=== PATIENT | male | born 1950 | race Caucasian/White ===

== ENCOUNTER 2019-12-25 11:34 | Observation (INO) ==
[2019-12-25] MEDS ORDERED: SODIUM CHLORIDE 0.9% 500 ML IV ONE (12:03)
[2019-12-25] MEDS ORDERED: LIDOCAINE/EPINEPH/TETRACAINE 1 EA SYR EXT STA (12:06)
[2019-12-25] MEDS ORDERED: DIPHTHERIA/TETANUS/PERTUSSIS 0.5 ML SYR/VIAL IM ONE (12:06)
[2019-12-25 12:19] LABS: Basophils # (auto) 0.05 K/uL (0-0.2); Basophils % (auto) 0.5 %; Eosinophils # (auto) 0.75 K/uL (0-0.5); Eosinophils % (auto) 8.1 %; Hematocrit (blood only) 34.8 % (42-52); Hemoglobin 11.5 g/dL (14.0-18.0); Immature Granulocytes # (auto) 0.02 K/uL (0.00-0.02); Immature Granulocytes % (auto) 0.2 %; Lymphocytes # (auto) 1.03 K/uL (1.2-3.4); Lymphocytes % (auto) 11.1 %; Mean Corpuscular Hemoglobin 28.5 pg (25-34); Mean Corpuscular Volume 86.1 fL (80-100); Mean Platelet Volume 10.1 fL (7.4-10.4); Monocytes # (auto) 0.67 K/uL (0.11-0.59); Monocytes % (auto) 7.3 %; Neutrophils # (auto) 6.72 K/uL (1.4-6.5); Neutrophils % (auto) 72.8 %; Platelet Count 240 K/uL (130-400); RDW Coefficient of Variation 13.5 % (11.5-14.5); RDW Standard Deviation 42.4 fL (36.4-46.3); Red Blood Count 4.04 M/uL (4.7-6.1); White Blood Count 9.24 K/uL (4.8-10.8)
--- NOTE | 2019-12-25 12:24 | XRay Report ---
LEFT KNEE 2 VIEWS HISTORY: Left knee pain. fall COMPARISON: None. FINDINGS: There is no fracture or dislocation. Soft tissues are unremarkable. No radiopaque foreign b odies. No knee effusion. IMPRESSION: No fractures. ACT 112: Negative or not required by law. Electronically signed by: Jere Hubbard M.D. 12/25/2019 12:23 PM
--- NOTE | 2019-12-25 12:31 | XRay Report ---
XR chest 1V portable HISTORY: SEPSIS COMPARISON: Chest 04/30/2018. FINDINGS: The heart is normal in size. The lungs are clear. No pleural effusions. No pneumothorax. Mu ltiple surgical clips within the upper abdomen are again noted. IMPRESSION: No acute process. ACT 112: Negative or not required by law. Electronically signed by: Jere Hubbard M.D. 12/25/2019 12:30 PM
[2019-12-25 12:32] LABS: INR 1.1 (0.9-1.1); Partial Thromboplastin Time 27.8 Seconds (21.0-31.0); Prothrombin Time 11.4 Seconds (9.0-12.0)
--- NOTE | 2019-12-25 12:34 | Emergency Department Note ---
Impression & Plan Orthostatic hypotension, Acute kidney injury, Acute dehydration, Contusion of face, Face lacerations, Contusion of knee, left ED Provider Note NAME: NERIS WASSERMAN III AGE: 69 SEX: M : 1950 ARRIVES VIA: Walk-In INFORMANT: Patient, ED PROVIDER(S): Leno Alford DO CHIEF COMPLAINT: Generalized weakness and fall HPI: The patient is a 69-year-old male who presented to the emergency department after having a fall. The patient states that when he went to stand up from a lying position he felt very dizzy and lightheaded. He fell striking his head and his face. There was no loss of consciousness. The patient attempted to get up again and had very significant dizziness. The patient states that he has continued symptoms at this time. At rest he does not have any specific dizziness or vertigo. He denies having any headache at this time but does complain of facial pain where he struck his face. He also complains of left knee pain. He denies having any nausea or vomiting. He is had no recent fevers. The patient normally takes medications for high blood pressure. He states that he has been taking his medications as prescribed. He has had no recent traveling or fever. He denies having any abdominal pain dysuria or frequency. The patient is noticed no weight gain or weight loss. He denies having any increasing swelling in his legs. ROS: See above HPI for pertinent positives & negatives. A total of 10 systems reviewed and were otherwise negative. PAST MEDICAL HISTORY: See Below PAST SURGICAL HISTORY: See Below FAMILY HISTORY: See Below SOCIAL HISTORY: See Below HOME MEDICATIONS: See Below ALLERGIES: See Below VITALS: See Below PHYSICAL EXAMINATION: GENERAL: The patient is awake and alert. He is somewhat anxious appearing but overall comfortable. EYES: The conjunctivae are clear. The pupils are round and reactive. EARS, NOSE, MOUTH AND THROAT: The nose is without any evidence of any deformity. Mucous membranes are moist. There is swelling and abrasion noted to the forehead as well as the occipital scalp. There is also a laceration over the left cheek. No active bleeding was noted. NECK: The neck is nontender and supple. RESPIRATORY: Normal respiratory effort is noted there is no evidence of wheezing rhonchi or rales CARDIOVASCULAR: Regular rate and rhythm noted there no murmurs rubs or gallops normal S1 normal S2. GASTROINTESTINAL: The abdomen is soft. Abdomen is nontender. BACK: No midline tenderness or or step-off noted range of motion in flexion extension as well as rotation no signs of muscle spasm noted MUSCULOSKELETAL/EXTREMITIES: There is no deformity noted. There is an abrasion to the left knee. Range of motion is intact in both lower extremities. SKIN: There is no obvious evidence of any rash. Trace pedal edema was noted. NEUROLOGIC: Patient is awake alert and oriented x3 strength is symmetric patellar reflexes are 2+ bilaterally MEDICAL DECISION MAKING: The patient is a 69-year-old male who presented to the emergency department after having a dizzy spell and he fell. The patient has a history of 1 kidney. He has had underlying chronic renal insufficiency. The patient has underlying bradycardia because of beta-savi use for hypertension. The patient also suffered a laceration to the left side of his face after the fall. The patient was treated with IV fluids. I discussed the patient's laboratory and radiographic studies with him. The laceration was repaired by Perlita Hooper PA-C. Please see her note for procedure details. Because of the patient's past medic al history and renal status I did discuss this case with the on-call [facility] hospitalist group. They have agreed to evaluate the patient in the emergency department for further management and disposition. The patient did have a positive orthostatic vital sign and dropped his blood pressure s ignificantly. I do not feel that he is septic at this time. Triage Nursing notes reviewed. Prior medical records reviewed Vital Signs: reviewed and remarkable for no significant abnormalities Differential diagnosis: Infection, dehydration, metabolic abnormality, hypo/hyperglycemia, electrolyte disturbance, anemia, hypoxia, cardiac sources, intracerebral event, toxicologic, neurologic, as well as other pathologies. ER treatment provided: See below Diagnostics interpreted by me: ECG: EKG was obtained in the emergency department. My interpretation is sinus bradycardia at 42 bpm. There was a nonspecific intraventricular block noted with a QRS duration of 140. There were no PVCs. This was compared to a tracing from April 30, 2018. The QRS appears to be prolonged compared to the earlier tracing however no specific changes were noted. Cardiac Monitoring: An order was placed for continuous cardiac monitoring. The monitor shows a rate of 55 with sinus bradycardia rhythm. Laboratory studies: As stated above and show below. Imaging studies: See below Consultation(s): 1410: I discussed this case with Dr. Lindquist who is on-call for the [facility] hospitalist group. He is agreed to evaluate the patient in the emergency department for further management and disposition. 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 PT DOSE NOT ABSORB NUTRIENTS/FLUIDS. DIGESTIVE PROCESS IS EXCELERATED PER PT History of nephrectomy, unilateral HTN (hypertension) (Chronic) HTN (hypertension) (Chronic) Hypoglycemia Klebsiella sepsis (Acute) Lupus Lupus (Chronic) Staton syndrome Pseudomonas sepsis (Acute) Short gut syndrome (Chronic) Surgical History (Updated 12/25/19 @ 14:43 by Jonny Lindquist) H/O colectomy 2nd to numerous polyps (Staton syndrome) History of cholecystectomy Family History (Updated 12/25/19 @ 14:41 by Jonny Lindquist) Father Colorectal cancer Leukemia "blood cancer" per patient Brother Renal cell cancer Kidney disease ESRD on HD Social History (Updated 12/25/19 @ 14:44 by Jonny Lindquist) Preferred Language: Maltese Communication Ability: Effective Neck Band Maker Required: No Beliefs That Will Affect Care: None marital status: Current Living Situation: Other Current Living Situation Comment: lives with ex- in [place], [place] (splits time between [place] & [place]) 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 other: 3 children; 1 daughter lives in [place] Feels Safe at Home: Yes Smoking Status: Never smoker Second Hand Exposure: Yes ; Hx Alcohol Use: Yes (very infrequently) Alcohol Intake Frequency: Rarely Hx Substance Use: No Allergies Allergies Allergy/AdvReac Type Severity Reaction Status Date / Time lactose AdvReac Gastrointestinal Verified 12/25/19 11:59 Upset Home Meds Home Medications Medication Instructions Recorded Confirmed amlodipine [Norvasc] 10 mg PO QAM 04/23/18 12/25/19 doxazosin [Cardura] 4 mg PO QAM 04/23/18 12/25/19 duloxetine [Cymbalta] 60 mg PO QAM 04/23/18 12/25/19 ferrous sulfate 325 mg PO BID 04/23/18 12/25/19 hydroxychloroquine [Plaquenil] 200 mg PO BID 04/23/18 12/25/19 labetalol 400 mg PO BID 04/23/18 12/25/19 promethazine 12.5 mg PO DIRECTED PRN 04/23/18 12/25/19 zolpidem [Ambien] 10 mg PO HS PRN 04/23/18 12/25/19 gabapentin 300 mg capsule 600 mg PO DAILY cap 12/11/19 12/25/19 cholecalciferol (vitamin D3) 50 mcg PO DAILY 12/25/19 12/25/19 [Vitamin D3] Previous Rx's Medication Instructions Recorded albuterol sulfate 2 inha INH Q4H PRN #8 gm 04/30/18 lisinopril 2.5 mg tablet 2.5 mg PO DAILY #90 tab 05/24/19 Results & Data (ED) Vital Signs Vital Signs - 24 hr 12/25/19 11:40 12/25/19 11:54 12/25/19 11:58 Pulse Rate - Lying 41 L Pulse Rate - Sitting 44 L Pulse Rate - Standing 48 L Pulse Rate 45 L 44 L Respiratory Rate 16 19 Respiratory Effort / Characteristics Non-Labored Spontaneous Respiratory Depth Normal Blood Pressure - Lying 127/68 Blood Pressure - Sitting 122/66 Blood Pressure- Standing 73/48 L Blood Pressure 86/52 L 73/48 L Blood Pressure Mean 63 59 Pulse Oximetry 95 Oxygen Delivery Method Room Air Sepsis Recent Fever Within 48 Hours No Sepsis Action Taken by Nursing No Action Required 12/25/19 12:00 12/25/19 12:03 12/25/19 12:15 Pulse Rate - Lying Pulse Rate - Sitting Pulse Rate - Standing Pulse Rate 44 L 44 L Respiratory Rate 14 13 Respiratory Effort / Characteristics Respiratory Depth Blood Pressure - Lying Blood Pressure - Sitting Blood Pressure- Standing Blood Pressure Blood Pressure Mean Pulse Oximetry 95 Oxygen Delivery Method Room Air Sepsis Recent Fever Within 48 Hours Sepsis Action Taken by Nursing 12/25/19 12:30 12/25/19 12:35 12/25/19 12:45 Pulse Rate - Lying Pulse Rate - Sitting Pulse Rate - Standing Pulse Rate 46 L 44 L 49 L Respiratory Rate 13 14 Respiratory Effort / Characteristics Respiratory Depth Blood Pressure - Lying Blood Pressure - Sitting Blood Pressure- Standing Blood Pressure 149/71 H Blood Pressure Mean 86 Pulse Oximetry Oxygen Delivery Method Sepsis Recent Fever Within 48 Hours Sepsis Action Taken by Nursing 12/25/19 13:32 Pulse Rate - Lying Pulse Rate - Sitting Pulse Rate - Standing Pulse Rate 52 L Respiratory Rate 14 Respiratory Effort / Characteristics Respiratory Depth Blood Pressure - Lying Blood Pressure - Sitting Blood Pressure- Standing Blood Pressure 135/76 Blood Pressure Mean 89 Pulse Oximetry Oxygen Delivery Method Sepsis Recent Fever Within 48 Hours Sepsis Action Taken by [facility] Medications Current Medication List: was personally reviewed by me Laboratory Data Attestation: I reviewed the patient's lab results. Result diagrams: 12/25/19 12:10 12/25/19 12:10 Lab Results 12/25/19 12/25/19 12/25/19 Range/Units 12:10 12:10 12:10 WBC 9.24 (4.8-10.8) K/uL RBC 4.04 L (4.7-6.1) M/uL Hgb 11.5 L (14.0-18.0) g/dL Hct 34.8 L (42-52) % MCV 86.1 (80-100) fL MCH 28.5 (25-34) pg MCHC 33.0 (32-36) g/dL RDW Std Deviation 42.4 (36.4-46.3) fL RDW Coeff of Bruno 13.5 (11.5-14.5) % Plt Count 240 (130-400) K/uL MPV 10.1 (7.4-10.4) fL Immature Gran % (Auto) 0.2 % Neut % (Auto) 72.8 % Lymph % (Auto) 11.1 % [place] % (Auto) 7.3 % Eos % (Auto) 8.1 % Baso % (Auto) 0.5 % Immature Gran # (Auto) 0.02 (0.00-0.02) K/uL Neut # (Auto) 6.72 H (1.4-6.5) K/uL Lymph # (Auto) 1.03 L (1.2-3.4) K/uL [place] # (Auto) 0.67 H (0.11-0.59) K/uL Eos # (Auto) 0.75 H (0-0.5) K/uL Baso # (Auto) 0.05 (0-0.2) K/uL PT 11.4 (9.0-12.0) Seconds INR 1.1 (0.9-1.1) APTT 27.8 (21.0-31.0) Seconds PTT Ratio 1.0 Sodium 139 (136-145) mmol/L Potassium 4.0 (3.5-5.1) mmol/L Chloride 111 H (98-107) mmol/L Carbon Dioxide 20 L (21-32) mmol/L Anion Gap 8.0 (3-11) BUN 23 H (7-18) mg/dl Creatinine 2.92 H (0.6-1.4) mg/dl Est Cr Clr Drug Dosing 26.6 ml/min Est GFR ( Amer) 24.1 Est GFR (Non-Af Amer) 20.8 BUN/Creatinine Ratio 7.9 L (10-20) Glucose 128 H (70-99) mg/dl Lactate (0.4-2.0) mmol/L Calcium 9.3 (8.5-10.1) mg/dl Magnesium 2.2 (1.8-2.4) mg/dl Total Bilirubin 0.8 (0.2-1) mg/dl AST 25 (15-37) U/L ALT 20 (12-78) U/L Alkaline Phosphatase 89 (45-117) U/L Troponin I < 0.015 (0-0.045) ng/ml Total Protein 6.7 (6.4-8.2) gm/dl Albumin 3.2 L (3.4-5.0) gm/dl Globulin 3.5 (2.5-4.0) gm/dl Albumin/Globulin Ratio 0.9 (0.9-2) Procalcitonin (0-0.5) ng/ml TSH 0.449 (0.300-4.500) uIu/ml 12/25/19 12/25/19 Range/Units 12:10 12:50 WBC (4.8-10.8) K/uL RBC (4.7-6.1) M/uL Hgb (14.0-18.0) g/dL Hct (42-52) % MCV (80-100) fL MCH (25-34) pg MCHC (32-36) g/dL RDW Std Deviation (36.4-46.3) fL RDW Coeff of Bruno (11.5-14.5) % Plt Count (130-400) K/uL MPV (7.4-10.4) fL Immature Gran % (Auto) % Neut % (Auto) % Lymph % (Auto) % [place] % (Auto) % Eos % (Auto) % Baso % (Auto) % Immature Gran # (Auto) (0.00-0.02) K/uL Neut # (Auto) (1.4-6.5) K/uL Lymph # (Auto) (1.2-3.4) K/uL [place] # (Auto) (0.11-0.59) K/uL Eos # (Auto) (0-0.5) K/uL Baso # (Auto) (0-0.2) K/uL PT (9.0-12.0) Seconds INR (0.9-1.1) APTT (21.0-31.0) Seconds PTT Ratio Sodium (136-145) mmol/L Potassium (3.5-5.1) mmol/L Chloride (98-107) mmol/L Carbon Dioxide (21-32) mmol/L Anion Gap (3-11) BUN (7-18) mg/dl Creatinine (0.6-1.4) mg/dl Est Cr Clr Drug Dosing ml/min Est GFR ( Amer) Est GFR (Non-Af Amer) BUN/Creatinine Ratio (10-20) Glucose (70-99) mg/dl Lactate 1.1 (0.4-2.0) mmol/L Calcium (8.5-10.1) mg/dl Magnesium (1.8-2.4) mg/dl Total Bilirubin (0.2-1) mg/dl AST (15-37) U/L ALT (12-78) U/L Alkaline Phosphatase (45-117) U/L Troponin I (0-0.045) ng/ml Total Protein (6.4-8.2) gm/dl Albumin (3.4-5.0) gm/dl Globulin (2.5-4.0) gm/dl Albumin/Globulin Ratio (0.9-2) Procalcitonin 0.11 (0-0.5) ng/ml TSH (0.300-4.500) uIu/ml Administered Medications Discontinued Medications Diphtheria/Pertussis/Tetanus Vacc (Adacel) 0.5 ml IM .ONCE ONE Stop: 12/25/19 12:07 Last Admin: 12/25/19 12:30 Dose: 0.5 ml Documented by: [id number] Sodium Chloride (Nss) 500 mls @ 999 mls/hr IV .Q31M ONE Stop: 12/25/19 12:33 Last Infusion: 12/25/19 13:08 Dose: 0 mls/hr Documented by: [id number] Admin: 12/25/19 12:31 Dose: 999 mls/hr Documented by: [id number] Sodium Chloride (Nss 1000ml) 500 mls @ 999 mls/hr IV .Q31M ONE Stop: 12/25/19 13:57 Last Infusion: 12/25/19 14:05 Dose: 0 mls/hr Documented by: [id number] Admin: 12/25/19 13:36 Dose: 999 mls/hr Documented by: [id number] Lidocaine (Let Gel 4%/1:100/0.5%) 1 ea EXT NOW STA Stop: 12/25/19 12:07 Last Admin: 12/25/19 12:30 Dose: 1 ea Documented by: [id number] Imaging Data Radiologist's Impression: XR chest 1V portable HISTORY: SEPSIS COMPARISON: Chest 04/30/2018. FINDINGS: The heart is normal in size. The lungs are clear. No pleural effusions. No pneumothorax. Multiple surgical clips within the upper abdomen are again noted. IMPRESSION: No acute process. ACT 112: Negative or not required by law. Electronically signed by: Jere Hubbard M.D. 12/25/2019 12:30 PM Dictated: 12/25/19 1223 Transcribed: 12/25/[address] DOSE: 1053.89 mGy.cm HISTORY: fall TECHNIQUE: Multiaxial CT images of the cervical spine were performed and reformatted in the sagittal and coronal plane without the use of contrast. A dose lowering technique was utilized adhering to the principles of ALARA. COMPARISON: None. FINDINGS: No fractures. No subluxation. Prevertebral soft tissues and the C1-C2 interval are intact. No pneumothorax. Mild to moderate degenerative disc disease at C4-C5 and C5-C6. IMPRESSION: No fractures within the cervical spine. ACT 112: Negative or not required by law. Electronically signed by: Jere Hubbard M.D. 12/25/2019 1:27 PM Dictated: 12/25/19 1326 Transcribed: 12/25/[address] head/brain wo con CLINICAL HISTORY: 69 years-old Male presenting with fall. TECHNIQUE: Multidetector CT imaging of the head was performed without the use of intravenous contrast. IV contrast: None. One or more dose lowering techniques were used consistent with the principles of ALARA (as low as reasonably achievable), including automatic exposure control, mA or kV adjustment to individual patient size, and/or use of iterative reconstruction. COMPARISON: None. CT DOSE (mGy.cm): The estimated cumulative dose is 1053.89. FINDINGS: Vice President Education topogram: Unremarkable. Ventricles and sulci normal in size. No hemorrhage. Brain parenchyma normal in appearance with preserved mckeon-white differentiation. No acute territorial infarct. No mass effect or midline shift. No extra-axial fluid collection. Paranasal sinuses and mastoid air cells clear. Scattered mucosal thickening in ethmoid air cells and the frontal sinuses, left greater than right. Skull base intact. Calvarium intact. Mild soft tissue swelling in the left premaxillary region with a possible laceration. IMPRESSION: 1. No acute intracranial abnormality. 2. Possible left premaxillary contusion and laceration. ACT 112: Negative or not required by law. Electronically signed by: Otto Chairez M.D. 12/25/2019 1:22 PM Dictated: 12/25/19 1320 Transcribed: 12/25/19 1320 LEFT KNEE 2 VIEWS HISTORY: Left knee pain. fall COMPARISON: None. FINDINGS: There is no fracture or dislocation. Soft tissues are unremarkable. No radiopaque foreign bodies. No knee effusion. IMPRESSION: No fractures. ACT 112: Negative or not required by law. Electronically signed by: Jere Hubbard M.D. 12/25/2019 12:23 PM Dictated: 12/25/19 1222 Transcribed: 12/25/19 1222 Blood Pressure Blood Pressure Findings: Low blood pressure Head Trauma GCS Score: 15 Discharge Plan Visit Data Chief Complaint: Fall Stated Complaint: FELL DOWNSTAIRS, HIT LT SIDE HEAD ED Provider: Leno Alford Discharge Problem: Orthostatic hypotension, Acute kidney injury, Acute dehydration, Contusion of face, Face lacerations, Contusion of knee, left Patient Disposition: Being Evaluated by Hospitalist Condition: Good Forms Stand Alone Forms: [facility], Important Visit Information Prescriptions Prescriptions: No Action gabapentin 300 mg capsule 600 mg PO DAILY RF: 0 lisinopril 2.5 mg tablet 2.5 mg PO DAILY Qty: 90 RF: 3 labetalol 200 mg Tablet 400 mg PO BID RF: 0 promethazine 12.5 mg Tablet 12.5 mg PO DIRECTED PRN (Reason: nausea) RF: 0 amlodipine [Norvasc] 10 mg Tablet 10 mg PO QAM RF: 0 ferrous sulfate 325 mg (65 mg iron) Tablet 325 mg PO BID RF: 0 doxazosin [Cardura] 4 mg Tablet 4 mg PO QAM RF: 0 hydroxychloroquine [Plaquenil] 200 mg Tablet 200 mg PO BID RF: 0 zolpidem [Ambien] 10 mg Tablet 10 mg PO HS PRN (Reason: Sleep) RF: 0 duloxetine [Cymbalta] 60 mg Capsule,Delayed Release(Dr/Ec) 60 mg PO QAM RF: 0 cholecalciferol (vitamin D3) [Vitamin D3] 50 mcg (2,000 unit) Tablet 50 mcg PO DAILY RF: 0 albuterol sulfate 90 mcg/actuation HFA aerosol inhaler 2 inha INH Q4H PRN (Reason: shortness of breath or wheezing) Qty: 8 RF: 0 Referrals Referrals: PCP,NO [Primary Care Provider] -
[2019-12-25 12:38] LABS: Albumin Level 3.2 gm/dl (3.4-5.0); Aspartate Aminotransferase 25 U/L (15-37); BUN Creatinine Ratio 7.9 (10-20); Blood Urea Nitrogen 23 mg/dl (7-18); Calcium 9.3 mg/dl (8.5-10.1); Carbon Dioxide 20 mmol/L (21-32); Chloride 111 mmol/L (98-107); Creatinine Clr Calc Pharmacy 26.6 ml/min; Est GFR (African American) 24.1; Est GFR (Non-African American) 20.8; Glucose 128 mg/dl (70-99); Magnesium 2.2 mg/dl (1.8-2.4); Sodium 139 mmol/L (136-145)
[2019-12-25 12:48] LABS: Alanine Aminotransferase 20 U/L (12-78); Albumin Globulin Ratio 0.9 (0.9-2); Alkaline Phosphatase 89 U/L (45-117); Bilirubin,Total 0.8 mg/dl (0.2-1); Globulin 3.5 gm/dl (2.5-4.0); Thyroid Stimulating Hormone 0.449 uIu/ml (0.300-4.500); Total Protein 6.7 gm/dl (6.4-8.2); Troponin I < 0.015 ng/ml (0-0.045)
--- NOTE | 2019-12-25 13:23 | CT Scan Report ---
CT head/brain wo con CLINICAL HISTORY: 69 years-old Male presenting with fall. TECHNIQUE: Multidetector CT imaging of the head was performed without the use of intravenous contrast . IV contrast: None. One or more dose lowering techniques were used consistent with the principles of ALARA (as low as reasonably achievable), including automatic exposure control, mA or kV adjustment t o individual patient size, and/or use of iterative reconstruction. COMPARISON: None. CT DOSE (mGy.cm): The estimated cumulative dose is 1053.89. FINDINGS: Safety Officer topogram: Unremarkable. Ventricles and sulci normal in size. No hemorrhage. Brain parenchyma normal in appearance with preser kathryn mckeon-white differentiation. No acute territorial infarct. No mass effect or midline shift. No ext ra-axial fluid collection. Paranasal sinuses and mastoid air cells clear. Scattered mucosal thickenin g in ethmoid air cells and the frontal sinuses, left greater than right. Skull base intact. Calvarium intact. Mild soft tissue swelling in the left premaxillary region with a possible laceration. IMPRESSION: 1. No acute intracranial abnormality. 2. Possible left premaxillary contusion and laceration. ACT 112: Negative or not required by law. Electronically signed by: Otto Chairez M.D. 12/25/2019 1:22 PM
[2019-12-25] MEDS ORDERED: SODIUM CHLORIDE 0.9% 1000ML 500 ML IV ONE (13:27)
--- NOTE | 2019-12-25 13:28 | CT Scan Report ---
CERVICAL SPINE CT CT DOSE: 1053.89 mGy.cm HISTORY: fall TECHNIQUE: Multiaxial CT images of the cervical spine were performed and reformatted in the sagittal and coronal plane without the use of contrast. A dose lowering technique was utilized adhering to th e principles of ALARA. COMPARISON: None. FINDINGS: No fractures. No subluxation. Prevertebral soft tissues and the C1-C2 interval are intact. No pneumothorax. Mild to moderate degenerative disc disease at C4-C5 and C5-C6. IMPRESSION: No fractures within the cervical spine. ACT 112: Negative or not required by law. Electronically signed by: Jere Hubbard M.D. 12/25/2019 1:27 PM
--- NOTE | 2019-12-25 13:56 | Emergency Department Note ---
ED Visit Note I was asked by Dr. Alford to repair the laceration on the patient's left cheek. He sustained a 2 cm laceration on the left cheek, just inferior to the orbit. The edges did gape apart with traction. There is mild active bleeding at this time. No deep structures noted at the base of the wound. Surrounding ecchymosis noted. Please see Dr. Alford's dictation regarding complete history, management, care, and final disposition of this patient. PROCEDURE NOTE: Verbal consent was obtained to perform the procedure. LET gel had been applied to the wound and allowed to sit for approximately 60 minutes. After appropriate anesthetization, using sterile technique the wound was cleaned with Betadine. The area was sterilely draped. The wound was copiously irrigated under pressure with sterile saline. The wound was explored and there were no deep structures injured such as tendons, bone, or significant blood vessels. The laceration was repaired using 3 simple interrupted 5-0 nylon sutures with the wound edges being well approximated. The patient tolerated the procedure well. Hemostasis was achieved. The area was cleaned with sterile saline and dressed with bacitracin ointment and bandage.
--- NOTE | 2019-12-25 14:23 | History & Physical Report ---
Date of Service December 25, 2019 Assessment & Plan (1) Syncope: Patient was markedly hypotensive at time of presentation today. Likely the hypotension was 2nd to dehydration from short gut syndrome as well as multiple BP meds. He had prodromal dizziness and lightheadedness prior to the syncopal event. No evidence of ACS or infectious process. Presenting EKG showed wide complex rhythm, bradycardic in the 40s, without obvious P waves. Uncertain if this was escape rhythm or not. When I saw patient in the ER for my admission assessment his HR was in the high 50s and was clearly sinus with obvious P waves on the monitor. HOLD BP meds, hydrate overnight, and check orthostatics qshift. Place on telemetry. Just had normal echo (except known ) in November in [place] from his knitting teacher (follows with such for HTN). Consider event monitor to r/o dysrhythmia as cause of syncope but again the obvious cause was likely the low BP. (2) Fall down stairs: 2nd to syncopal episode - see above. Amazingly he has no acute fractures. Did have head injury with abrasions and left cheek laceration requiring repair. PT eval tomorrow to ensure safe for d/c. (3) Orthostatic hypotension: 2nd to dehydration from diarrhea. Latter is chronic from short gut syndrome. Previously he used to get infusions of IV fluids to prevent diarrhea. I suggested that he try to take meds - cholestyramine, imodium, etc - to slow GI transit to prevent this. Hold BP meds and hydrate. (4) Acute kidney injury: 2nd to dehydration, ROBERT inhibitor use, etc. check u/a. hydrate, repeat BMP am. (5) Acute dehydration: 2nd to diarrhea and suboptimal PO intake. Diarrhea is chronic. (6) Contusion of face: with laceration of left cheek. s/p TDaP injection in ER. CT head wnl. (7) Face lacerations: s/p repair. will need sutures out in ~7-10 days. (8) HTN (hypertension): Hold BP meds. reintroduce meds as BPs rise. 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 Consider daily imodium, etc. (10) Lupus: no flare in some time. stable on plaquenil. cannot rule out arrhythmia from use of plaquenil causing syncope. (11) CKD (chronic kidney disease) stage 3, GFR 30-59 ml/min: baseline Cr high 1's to low 2's now with ZEV hydrate, BMP in am (12) Solitary kidney: h/o nephrectomy (13) Aortic stenosis: per his knitting teacher was mild and they are simply following (14) DVT prophylaxis: heparin 5000 BID starting tomorrow updated his contact listed in chart (ex-); questions answered History of Present Illness Chief Complaint: dizziness, fall down the stairs Primary Care Provider: NO PCP 69yo male with h/o solitary kidney, CKD stage 3, SLE, and short gut syndrome who presents after a fall down a flight of stairs at his home in [place]. He got out of bed this am and felt dizzy/lightheaded. He then went up a flight of stairs and continued to be dizzy. He got to the top of the stairs, proceeded to pass out, and then fell down the entire flight of stairs. He does not know how long he was passed out for. Son-in-law found him at the bottom of the steps. He finally awoke and he was brought by daughter/son-in-law to the ER. He hit his head during the event and suffered a laceration over the left cheek that required 3 sutures. He had 2 other falls in the last week associated with feeling lightheaded but did not have syncope with those 2 events. He has not had associated chest pain, dyspnea, or palpitations. Over the last 2 weeks he has felt well. He has 3-4 loose stools on a chronic basis from his short-gut syndrome. He admits he does not drink enough water on daily basis. NO fevers, chills, loss of taste or smell, cough, nausea, vomiting, sick contacts. NO abdominal pain. NO blood per rectum. He has chronic allergies/sinus congestion. Patient was recently in [place] and drove back to [place] 2 weeks ago. Allergies Allergy/AdvReac Type Severity Reaction Status Date / Time lactose AdvReac Gastrointestinal Verified 12/25/19 11:59 Upset Home Medications Home Medications Medication Instructions Recorded Confirmed Type amlodipine [Norvasc] 10 mg PO QAM 04/23/18 12/25/19 History doxazosin [Cardura] 4 mg PO QAM 04/23/18 12/25/19 History duloxetine [Cymbalta] 60 mg PO QAM 04/23/18 12/25/19 History ferrous sulfate 325 mg PO BID 04/23/18 12/25/19 History hydroxychloroquine [Plaquenil] 200 mg PO BID 04/23/18 12/25/19 History labetalol 400 mg PO BID 04/23/18 12/25/19 History promethazine 12.5 mg PO DIRECTED PRN 04/23/18 12/25/19 History zolpidem [Ambien] 10 mg PO HS PRN 04/23/18 12/25/19 History albuterol sulfate 2 inha INH Q4H PRN #8 gm 04/30/18 12/25/19 Rx lisinopril 2.5 mg tablet 2.5 mg PO DAILY #90 tab 05/24/19 12/25/19 Rx gabapentin 300 mg capsule 600 mg PO DAILY cap 12/11/19 12/25/19 History cholecalciferol (vitamin D3) 50 mcg PO DAILY 12/25/19 12/25/19 History [Vitamin D3] Past Med/Surg History Surgical History H/O colectomy 2nd to numerous polyps (Staton syndrome) History of cholecystectomy Family History (Updated 12/25/19 @ 14:41 by Jonny Lindquist) Father Colorectal cancer Leukemia "blood cancer" per patient Brother Renal cell cancer Kidney disease ESRD on HD Social History (Updated 12/25/19 @ 14:44 by Jonny Lindquist) Preferred Language: Citizen Of [place] Communication Ability: Effective Band Edger Required: No Beliefs That Will Affect Care: None marital status: Current Living Situation: Family and Other Current Living Situation Comment: lives with ex- in [place], [place] (splits time between [place] & [place]) 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 Other Information That Helps Us Care for You: No other: 3 children; 1 daughter lives in [place] Feels Safe at Home: Yes Safety Concerns: Feels Safe At This Time Smoking Status: Never smoker Second Hand Exposure: Yes ; Hx Alcohol Use: Yes (very infrequently) Alcohol type: beer Alcohol Intake Frequency: Rarely Hx Substance Use: No Review of Systems Constitutional: no fever, no chills, no anorexia and no weight loss Eyes: no worsening vision Ear, Nose, Mouth, Throat: + nasal congestion (chronic); no sore throat and no dysphagia Respiratory: + dyspnea on exertion; no cough Cardiovascular: + dyspnea on exertion (chronic, no change ); no chest pain Gastrointestinal: + diarrhea/loose stools; no abdominal pain, no nausea, no vomiting and no blood in stools Genitourinary: no dysuria Musculoskeletal: no myalgia and no body aches Integumentary: no rash Neurologic: no localized weakness and no loss of sensation Psychiatric: no depression and no anxiety Endocrine: no DM but h/o hypoglycemia Hematologic / Lymphatic: + easy bruising; no easy bleeding and no unexplained weight loss Allergy / Immunological: + seasonal rhinorrhea Physical Exam Constitutional: no acute distress and no altered mental status Eyes: + anicteric sclerae and PERRL ENMT: Ears: no TM abnormality Mouth: + dry oral mucous membranes Neck: trachea midline, no thyromegaly Respiratory: normal respiratory effort, lungs clear to auscultation Cardiovascular: Rate/Rhythm: regular rhythm and + bradycardic Heart Sounds: normal S1, normal S2 and + murmur (2/6 RUSB w/ radiation to right carotid ) Vessels: posterior tibial pulses present and dorsalis pedis pulses present; no JVD Extremities: no edema Gastrointestinal (Abdomen): normal bowel sounds, soft, nontender, no hepatosplenomegaly multiple surgical scars Musculoskeletal: no cyanosis or clubbing, extremities motor strength 5/5 no pain with passive ROM of b/l hips or knees; no bony abnormalities of the arms; no tenderness over the pelvis; no tenderness over the c-spine, t-spine or l- spine to palpation Skin: multiple abrasions on scalp; laceration left cheek; small hematoma posterior occiput of head Neurologic: deep tendon reflexes 2+ bilaterally and moves all extremities; no focal motor deficits Psychiatric: A+Ox3, euthymic affect Lymphatic: no cervical lymphadenopathy Results & Data Results & Data ([facility]) Vital Signs (Past 12 Hours) Vital Signs Pulse Resp BP Pulse Ox 12/25/19 13:32 52 L 14 135/76 12/25/19 12:45 49 L 12/25/19 12:35 44 L 14 149/71 H 12/25/19 12:30 46 L 13 12/25/19 12:15 44 L 13 12/25/19 12:03 95 12/25/19 12:00 44 L 14 12/25/19 11:58 44 L 19 73/48 L 12/25/19 11:40 45 L 16 86/52 L 95 Laboratory Results Laboratory Results - last 24 hr 12/25/19 12/25/19 12/25/19 12:10 12:10 12:10 WBC 9.24 RBC 4.04 L Hgb 11.5 L Hct 34.8 L MCV 86.1 MCH 28.5 MCHC 33.0 RDW Std Deviation 42.4 RDW Coeff of Bruno 13.5 Plt Count 240 MPV 10.1 Immature Gran % (Auto) 0.2 Neut % (Auto) 72.8 Lymph % (Auto) 11.1 [place]bon % (Auto) 7.3 Eos % (Auto) 8.1 Baso % (Auto) 0.5 Immature Gran # (Auto) 0.02 Neut # (Auto) 6.72 H Lymph # (Auto) 1.03 L [place] # (Auto) 0.67 H Eos # (Auto) 0.75 H Baso # (Auto) 0.05 PT 11.4 INR 1.1 APTT 27.8 PTT Ratio 1.0 Sodium 139 Potassium 4.0 Chloride 111 H Carbon Dioxide 20 L Anion Gap 8.0 BUN 23 H Creatinine 2.92 H Est Cr Clr Drug Dosing 26.6 Est GFR ( Amer) 24.1 Est GFR (Non-Af Amer) 20.8 BUN/Creatinine Ratio 7.9 L Glucose 128 H Lactate Calcium 9.3 Magnesium 2.2 Total Bilirubin 0.8 AST 25 ALT 20 Alkaline Phosphatase 89 Total Creatine Kinase 364 H Troponin I < 0.015 Total Protein 6.7 Albumin 3.2 L Globulin 3.5 Albumin/Globulin Ratio 0.9 Procalcitonin TSH 0.449 12/25/19 12/25/19 12:10 12:50 WBC RBC Hgb Hct MCV MCH MCHC RDW Std Deviation RDW Coeff of Bruno Plt Count MPV Immature Gran % (Auto) Neut % (Auto) Lymph % (Auto) Bourbon % (Auto) Eos % (Auto) Baso % (Auto) Immature Gran # (Auto) Neut # (Auto) Lymph # (Auto) [place] # (Auto) Eos # (Auto) Baso # (Auto) PT INR APTT PTT Ratio Sodium Potassium Chloride Carbon Dioxide Anion Gap BUN Creatinine Est Cr Clr Drug Dosing Est GFR ( Amer) Est GFR (Non-Af Amer) BUN/Creatinine Ratio Glucose Lactate 1.1 Calcium Magnesium Total Bilirubin AST ALT Alkaline Phosphatase Total Creatine Kinase Troponin I Total Protein Albumin Globulin Albumin/Globulin Ratio Procalcitonin 0.11 TSH Code Status & VTE Plan Code Status full VTE Prophylaxis Plan VTE Prophylaxis will be ordered: Yes PG Care Time/CCT Total # of Minutes Spent Total Time Spent with Patient: Total time spent is greater than 50% in coordination of care (as documented) at patient's floor/unit and/or counseling patient: Coding Level of Care Code 05258 Initial Inpt Care Lvl 3 Diagnoses Syncope R55 Syncope type: unspecified Fall down stairs W10.8XXA Encounter type: initial encounter Orthostatic hypotension I95.1 Acute kidney injury N17.9 Acute dehydration E86.0 Contusion of face S00.83XA Encounter type: initial encounter Face lacerations S01.81XA Encounter type: initial encounter HTN (hypertension) I10 Hypertension type: essential hypertension Short gut syndrome K91.2 Lupus L93.0 Lupus erythematosus form: unspecified CKD (chronic kidney disease) stage 3, GFR 30-59 ml/min N18.3 Solitary kidney Q60.0 Aortic stenosis I35.0 Cardiac valve disease etiology: etiology unspecified DVT prophylaxis Z29.9 (1) Contusion of face Encounter type: initial encounter Qualified Code(s): S00.83XA - Contusion of other part of head, initial encounter (2) Face lacerations Encounter type: initial encounter Qualified Code(s): S01.81XA - Laceration without foreign body of other part of head, initial encounter (3) HTN (hypertension) Hypertension type: essential hypertension Qualified Code(s): I10 - Essential (primary) hypertension (4) Lupus Lupus erythematosus form: unspecified Qualified Code(s): L93.0 - Discoid lupus erythematosus (5) Syncope Syncope type: unspecified Qualified Code(s): R55 - Syncope and collapse (6) Fall down stairs Encounter type: initial encounter Qualified Code(s): W10.8XXA - Fall (on) (from) other stairs and steps, initial encounter (7) Aortic stenosis Cardiac valve disease etiology: etiology unspecified Qualified Code(s): I35.0 - Nonrheumatic aortic (valve) stenosis
[2019-12-25 15:55] LABS: Creatine Kinase 364 U/L (39-308)
[2019-12-25] MEDS: SODIUM CHLORIDE 0.9% 1000ML 1,000 ML IV SCH (15:55)
--- NOTE | 2019-12-25 16:20 | Electrocardiogram Report ---
Test Reason : Blood Pressure : / mmHG Vent. Rate : 042 BPM Atrial Rate : 078 BPM P-R Int : 000 ms QRS Dur : 138 ms QT Int : 540 ms P-R-T Axes : 000 067 036 degrees QTc Int : 450 ms Wide QRS rhythm Right bundle branch block Abnormal ECG When compared with ECG of 30-APR-2018 13:21, QRS duration is longer Confirmed by Hunter French ([id number]) on 12/25/2019 4:19:54 PM Referred By: REFERRED SELF Confirmed By:Juarez French
[2019-12-25] MEDS ORDERED: ONDANSETRON INJ 2 MG/ML 2 ML VIAL IV PRN (16:26)
[2019-12-25] MEDS ORDERED: ZOLPIDEM TARTRATE 10 MG TAB PO PRN (16:26)
[2019-12-25] MEDS ORDERED: ALBUTEROL HFA 8 GM INHALER INH PRN (16:26)
[2019-12-25] MEDS ORDERED: ACETAMINOPHEN 325 MG TAB PO PRN (16:26)
[2019-12-25] MEDS: FERROUS SULFATE 325 MG TAB PO SCH (17:23)
[2019-12-25] MEDS: HYDROXYCHLOROQUINE SULFATE 200 MG TAB PO SCH (21:03)
[2019-12-26 01:44] LABS: Appearance Urine Cloudy (Clear); Bacteria Urine Automated 4+ (Negative); Bilirubin Urine Negative (Negative); Blood Urine Trace (Negative); Color Urine Orange; Glucose Urine UA Negative (Negative); Ketones Urine Negative (Negative); Leukocyte Esterase Urine 2+ (Negative); Nitrite Urine Positive (Negative); Protein Urine 3+ (Negative); RBC Urine Automated 0-4 /hpf (0-4); Specific Gravity Urine 1.019 (1.000-1.030); Urobilinogen Urine Negative (Negative); WBC Urine Automated >30 /hpf (0-5)
[2019-12-26] MEDS: SODIUM CHLORIDE 0.9% 1000ML 1,000 ML IV SCH (05:02)
[2019-12-26 08:00] LABS: BUN Creatinine Ratio 9.8 (10-20); Calcium 8.6 mg/dl (8.5-10.1); Creatinine Clr Calc Pharmacy 38.2 ml/min; Est GFR (African American) 33.7; Est GFR (Non-African American) 29.1; Potassium 3.2 mmol/L (3.5-5.1)
[2019-12-26] MEDS ORDERED: POTASSIUM CHLORIDE 20 MEQ TABCR PO STA (08:17)
[2019-12-26] MEDS: HEPARIN SOD 5,000 UNIT/0.5 ML VIAL SQ SCH ×2 (08:27→20:07)
[2019-12-26] MEDS: HYDROXYCHLOROQUINE SULFATE 200 MG TAB PO SCH ×2 (08:27→20:04)
[2019-12-26] MEDS: FERROUS SULFATE 325 MG TAB PO SCH ×2 (08:28→16:17)
[2019-12-26] MEDS: DOXAZosin MESYLATE 4 MG TAB PO SCH (08:28)
[2019-12-26] MEDS: DULOXETINE HCL 60 MG CAP PO SCH (08:28)
[2019-12-26] MEDS: GABAPENTIN 300 MG CAP PO SCH (08:28)
[2019-12-26] MEDS: CHOLECALCIFEROL 1,000 UNITS 25 MCG TAB PO SCH (08:28)
[2019-12-26] MEDS: cefTRIAXone SODIUM 2,000 MG in DEXTROSE 5% 50 ML IV SCH (08:34)
--- NOTE | 2019-12-26 16:09 | Electrocardiogram Report ---
Test Reason : Blood Pressure : / mmHG Vent. Rate : 064 BPM Atrial Rate : 064 BPM P-R Int : 208 ms QRS Dur : 116 ms QT Int : 474 ms P-R-T Axes : 056 063 -19 degrees QTc Int : 489 ms Normal sinus rhythm Right bundle branch block Abnormal ECG When compared with ECG of 25-DEC-2019 11:54, Vent. rate has increased BY 22 BPM Confirmed by Hunter French ([id number]) on 12/26/2019 4:09:21 PM Referred By: REFERRED SELF Confirmed By:Juarez French
--- NOTE | 2019-12-26 21:25 | Hospitalist Progress Note ---
Date of Service December 26, 2019 Assessment & Plan (1) Syncope: Patient was markedly hypotensive at time of presentation. Likely the hypotension was 2nd to dehydration from short gut syndrome as well as multiple BP meds and probably a brewing UTI. He had prodromal dizziness and lightheadedness prior to the syncopal event. No evidence of ACC. Presenting EKG showed wide complex rhythm, bradycardic in the 40s. I reviewed his EKG with cardiology and there were P waves on that EKG c/w sinus na (not escape rhythm). Now that BPs are much improved will resume labetalol albeit at a much lower dose of 100mg BID and cont to monitor overnight. Hold other BP meds. Can stop IV fluids later tonight. Cont orthostatic checks. Cont tele. I requested his most recent echo and EKG from his apartment groundskeeper in [place] - awaiting those records. (2) UTI (urinary tract infection): u/a highly suggestive of UTI which may have contributed to dehydration. Start rocephin 2gm daily and follow culture. (3) Fall down stairs: 2nd to syncopal episode - see above. Amazingly he has no acute fractures. Did have head injury with abrasions and left cheek laceration requiring repair. PT eval completed. Safe to return home w/ children locally. (4) Orthostatic hypotension: 2nd to dehydration from diarrhea. Latter is chronic from short gut syndrome. Previously he used to get infusions of IV fluids to prevent diarrhea. I suggested that he try to take meds - cholestyramine, imodium, etc - to slow GI transit to prevent this. much improved. can stop fluids later tonight. only resuming labetalol at lower dose later tonight; other meds on hold. (5) Acute kidney injury: 2nd to dehydration, ROBERT inhibitor use, etc. IMPROVED. stop fluids later tonight; repeat BMP am. (6) Acute dehydration: 2nd to diarrhea and suboptimal PO intake. Diarrhea is chronic. Dehydration resolved. (7) Contusion of face: with laceration of left cheek. s/p TDaP injection in ER. CT head wnl. (8) Face lacerations: s/p repair. will need sutures out in ~7-10 days. (9) HTN (hypertension): Hold BP meds except labetalol; resume at much lower dose of 100mg BID. Follow BPs. 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 Consider daily imodium, etc. (11) Lupus: no flare in some time. stable on plaquenil. cannot rule out arrhythmia from use of plaquenil causing syncope but unlikely. EKG today with NSR, RBBB, nonspecific inferior ST changes. Obtaining echo and EKG from cardiology in [place] for comparison. (12) CKD (chronic kidney disease) stage 3, GFR 30-59 ml/min: baseline Cr high 1's to low 2's now with ZEV hydrate until later tonight then BMP am (13) Solitary kidney: h/o nephrectomy (14) Aortic stenosis: per his apartment groundskeeper was mild and they are simply following obtaining echo from [place] apartment groundskeeper (15) Hypokalemia: replace repeat level am (16) DVT prophylaxis: heparin 5000 BID updated his contact listed in chart (ex-); questions answered; 12/24 anticipate d/c tomorrow Admission and Anticipated Discharge Date Admission Date: December 25, 2019 Subjective patient feeling much better than at admission. mild head soreness and neck soreness from his fall and head injury. otherwise no dizziness, lightheadedness, or presyncope. eating well. no cp, dyspnea, or abd pain. no fevers. he does admit some mild urinary hesitancy and stream issues over the previous week. telemetry normal overnight. mentions he was dx w/ asthma years ago and previously followed with pulmonary in [place]. Review of Systems Constitutional: no fever and no chills Respiratory: + cough and + wheezing; no dyspnea and no dyspnea on exertion Cardiovascular: no chest pain Gastrointestinal: no abdominal pain, no nausea and no vomiting Physical Exam Constitutional: well developed and well nourished; no acute distress and no altered mental status ENMT: external ear and nose normal, oropharynx normal (Patient sounds nasally congested ) Respiratory: no respiratory distress Auscultation: + wheezes (Hint of b/l ); no diminished lung sounds Cardiovascular: Rate/Rhythm: regular rate and regular rhythm Heart Sounds: normal S1, normal S2 and + murmur Vessels: posterior tibial pulses present and dorsalis pedis pulses present; no JVD Extremities: no edema Gastrointestinal (Abdomen): normal bowel sounds, soft, nontender, no hepatosplenomegaly Skin: abrasions on scalp; band-aid in place left cheek Psychiatric: A+Ox3, euthymic affect Results & Data Results & Data ([facility]) Vital Signs (Past 12 Hours) Vital Signs Temp Pulse Pulse Resp BP Pulse Ox 12/26/19 19:57 36.9 C 72 18 169/57 H 97 12/26/19 16:00 64 12/26/19 15:18 36.5 C 67 18 157/79 H 100 Laboratory Results Laboratory Results - last 24 hr 12/26/19 12/26/19 12/26/19 01:30 06:05 06:05 Sodium 142 Potassium 3.2 L D Chloride 114 H Carbon Dioxide 20 L Anion Gap 8.0 BUN 22 H Creatinine 2.21 H D Est Cr Clr Drug Dosing 38.2 Est GFR ( Amer) 33.7 Est GFR (Non-Af Amer) 29.1 BUN/Creatinine Ratio 9.8 L Glucose 90 Calcium 8.6 Troponin I 0.019 Urine Color [place] Urine Appearance Cloudy A Urine pH 5.0 Ur Specific [place] 1.019 Urine Protein 3+ H Urine Glucose (UA) Negative Urine Ketones Negative Urine Blood Trace H Urine Nitrite Positive A Urine Bilirubin Negative Urine Urobilinogen Negative Ur Leukocyte Esterase 2+ H Urine WBC (Auto) >30 H Urine RBC (Auto) 0-4 U Hyaline Cast (Auto) 10-30 H U Epithel Cells (Auto) 10-20 H Urine Bacteria (Auto) 4+ H PG Care Time/CCT Total # of Minutes Spent Total Time Spent with Patient: Total time spent is greater than 50% in coordination of care (as documented) at patient's floor/unit and/or counseling patient: Coding Level of Care Code 11252 Subseq Hosp Care Lvl 3 Diagnoses Syncope R55 Syncope type: unspecified UTI (urinary tract infection) N30.00 Urinary tract infection type: acute cystitis Hematuria presence: without hematuria Fall down stairs W10.8XXA Encounter type: initial encounter Orthostatic hypotension I95.1 Acute kidney injury N17.9 Acute dehydration E86.0 Contusion of face S00.83XA Encounter type: initial encounter Face lacerations S01.81XA Encounter type: initial encounter HTN (hypertension) I10 Hypertension type: essential hypertension Short gut syndrome K91.2 Lupus L93.0 Lupus erythematosus form: unspecified CKD (chronic kidney disease) stage 3, GFR 30-59 ml/min N18.3 Solitary kidney Q60.0 Aortic stenosis I35.0 Cardiac valve disease etiology: etiology unspecified Hypokalemia E87.6 DVT prophylaxis Z29.9 (1) Fall down stairs Encounter type: initial encounter Qualified Code(s): W10.8XXA - Fall (on) (from) other stairs and steps, initial encounter (2) Aortic stenosis Cardiac valve disease etiology: etiology unspecified Qualified Code(s): I35.0 - Nonrheumatic aortic (valve) stenosis (3) Lupus Lupus erythematosus form: unspecified Qualified Code(s): L93.0 - Discoid lupus erythematosus (4) Syncope Syncope type: unspecified Qualified Code(s): R55 - Syncope and collapse (5) Face lacerations Encounter type: initial encounter Qualified Code(s): S01.81XA - Laceration without foreign body of other part of head, initial encounter (6) Contusion of face Encounter type: initial encounter Qualified Code(s): S00.83XA - Contusion of other part of head, initial encounter (7) HTN (hypertension) Hypertension type: essential hypertension Qualified Code(s): I10 - Essential (primary) hypertension (8) UTI (urinary tract infection) Urinary tract infection type: acute cystitis Hematuria presence: without hematuria Qualified Code(s): N30.00 - Acute cystitis without hematuria
[2019-12-26] MEDS: LABETALOL HCL 100 MG TAB PO SCH (22:50)
[2019-12-27 06:54] LABS: BUN Creatinine Ratio 10.1 (10-20); Calcium 8.6 mg/dl (8.5-10.1); Creatinine Clr Calc Pharmacy 44.3 ml/min; Est GFR (African American) 40.2; Est GFR (Non-African American) 34.7; Potassium 3.5 mmol/L (3.5-5.1)
[2019-12-27] MEDS: GABAPENTIN 300 MG CAP PO SCH (08:22)
[2019-12-27] MEDS: DULOXETINE HCL 60 MG CAP PO SCH (08:22)
[2019-12-27] MEDS: FERROUS SULFATE 325 MG TAB PO SCH (08:22)
[2019-12-27] MEDS: LABETALOL HCL 100 MG TAB PO SCH (08:22)
[2019-12-27] MEDS: HYDROXYCHLOROQUINE SULFATE 200 MG TAB PO SCH (08:22)
[2019-12-27] MEDS: HEPARIN SOD 5,000 UNIT/0.5 ML VIAL SQ SCH (08:22)
[2019-12-27] MEDS: CHOLECALCIFEROL 1,000 UNITS 25 MCG TAB PO SCH (08:22)
[2019-12-27] MEDS: DOXAZosin MESYLATE 4 MG TAB PO SCH (08:22)
[2019-12-27] MEDS: cefTRIAXone SODIUM 2,000 MG in DEXTROSE 5% 50 ML IV SCH (08:57)
--- NOTE | 2019-12-27 14:21 | Discharge Summary ---
Date of Service date of admission - December 25, 2019 date of discharge - December 27, 2019 Admission HPI Per Admitting Provider 69yo male with h/o solitary kidney, CKD stage 3, SLE, and short gut syndrome who presents after a fall down a flight of stairs at his home in [place]. He got out of bed this am and felt dizzy/lightheaded. He then went up a flight of stairs and continued to be dizzy. He got to the top of the stairs, proceeded to pass out, and then fell down the entire flight of stairs. He does not know how long he was passed out for. Son-in-law found him at the bottom of the steps. He finally awoke and he was brought by daughter/son-in-law to the ER. He hit his head during the event and suffered a laceration over the left cheek that required 3 sutures. He had 2 other falls in the last week associated with feeling lightheaded but did not have syncope with those 2 events. He has not had associated chest pain, dyspnea, or palpitations. Over the last 2 weeks he has felt well. He has 3-4 loose stools on a chronic basis from his short-gut syndrome. He admits he does not drink enough water on daily basis. NO fevers, chills, loss of taste or smell, cough, nausea, vomiting, sick contacts. NO abdominal pain. NO blood per rectum. He has chronic allergies/sinus congestion. Patient was recently in [place] and drove back to [place] 2 weeks ago. Principal Diagnosis 1. syncope with fall 2. acute kidney injury 2nd dehydration/UTI 3. UTI Discharge Exam Constitutional well developed and well nourished; no acute distress and no altered mental status ENMT external ear and nose normal, oropharynx normal (Patient sounds nasally congested ) Respiratory no respiratory distress Auscultation: + wheezes (b/l, mild ); no diminished lung sounds Cardiovascular Rate/Rhythm: regular rate and regular rhythm Heart Sounds: normal S1, normal S2 and + murmur (2/6 RUSB) Vessels: posterior tibial pulses present and dorsalis pedis pulses present; no JVD Extremities: no edema Gastrointestinal (Abdomen) normal bowel sounds, soft, nontender, no hepatosplenomegaly Skin resolving bruises and abrasion of scalp; laceration, left cheek, with sutures intact; clean, no drainage Neurologic deep tendon reflexes 2+ bilaterally and moves all extremities; no focal motor deficits Psychiatric A+Ox3, euthymic affect Discharge Data Allergies Allergy/AdvReac Type Severity Reaction Status Date / Time lactose AdvReac Gastrointestinal Verified 12/25/19 11:59 Upset Vaccinations 12/25/2019 - Adacel (TDaP) Consultations HIM [Consult Health Information Management] Stat Physical therapy Procedures Performed suture repair of laceration, left cheek (completed by ER provider) Ordered Studies CT cervical spine wo con - no fractures. CT head/brain wo con - no ICH or fractures. Hospital Course (1) Syncope: Patient was markedly hypotensive at time of presentation (systolic BPs in the 70s). Likely the hypotension was 2nd to dehydration from short gut syndrome along with a brewing UTI - all in the setting of multiple anti-hypertensive medications. He had prodromal dizziness and lightheadedness prior to the syncopal event. No evidence of ACS. Presenting EKG showed wide complex rhythm, bradycardic in the 40s. I reviewed his EKG with cardiology and there were P waves on that EKG c/w sinus na (not escape rhythm). He received hydration in the ER with improvement in his BPs. He received additional IV fluids once admitted. All BP meds were initially held at time of admission. I received a copy of his echo report from his turret punch operator in [place], [place] from November 2019. This showed preserved EF with mod-severe aortic stenosis. It is possible that his could have contributed to the event given the extremely low blood pressure. After holding his beta savi the bradycardia resolved. No arrhythmia was seen during the hospitalization. At discharge his amlodipine and lisinopril were HELD. Labetalol was resumed albeit at a much lower dose of 100mg BID. His alpha savi was continued (had been taking for several years). Finally, patient WAS orthostatic even after copious hydration. Fortunately he was not symptomatic from the orthostasis even at time of discharge. It is possible that he has autonomic insufficiency or the alpha savi is contributing. The orthostasis was further proof that the amlodipine and lisinopril should be held, perhaps indefinitely. He was advised to check his BPs daily at home and also attempt to get orthostatic BPs. He will follow with Dr Gallegos from nephrology within 1 week of discharge. (2) UTI (urinary tract infection): Urine culture grew e.coli. He received 2 days of IV rocephin. Transitioned to oral keflex 500mg BID for 8 additional days at home. (3) Fall down stairs: 2nd to syncopal episode - see above. Amazingly he had no acute fractures. Did have head injury with abrasions and left cheek laceration requiring repair. PT eval completed. Safe to return home w/ children locally in [place]. He will need the sutures removed from the left cheek in 7 days post-discharge. (4) Orthostatic hypotension: 2nd to dehydration from diarrhea and BP meds. 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 Previously he used to get infusions of IV fluids to prevent diarrhea but these have been stopped for some time. I suggested that he try to take meds - cholestyramine, imodium, etc - to slow GI transit to prevent this. Orthostasis was still present even after copious amounts of IV fluids over 2 days. Amlodipine and lisinopril were HELD at discharge. Labetalol was resumed at lower dose of 100mg BID. Alpha savi was continued. He will check orthostatic BPs at home (counseled on how to do such). If orthostasis continues he may need to lower the alpha savi dose or stop it completely. (5) Acute kidney injury: 2nd to dehydration, ROBERT inhibitor use, etc. IMPROVED s/p IV fluids. Peak Cr 2.9. Discharge Cr 1.9. (6) Acute dehydration: 2nd to diarrhea and suboptimal PO intake along with UTI. Diarrhea is chronic. Dehydration resolved. Eating/drinking well prior to discharge. UTI was treated. (7) Contusion of face: with laceration of left cheek. s/p TDaP injection this admission. CT head wnl. (8) Face lacerations: s/p repair, left cheek laceration. will need sutures out in ~7 days post-discharge. (9) HTN (hypertension): Cont labetalol albeit at lower dose of 100mg BID. Cont doxazosin 4mg qam. Holding amlodipine and lisinopril. 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 Consider daily imodium, etc. (11) Lupus: no flare in some time. stable on plaquenil. cannot rule out arrhythmia from use of plaquenil causing syncope but unlikely. EKG with NSR, RBBB, nonspecific inferior ST changes. (12) CKD (chronic kidney disease) stage 3, GFR 30-59 ml/min: baseline Cr high 1's to low 2's superimposed ZEV this admission - resolved as noted above to f/u with Dr. Gallegos within 1 week of discharge (13) Solitary kidney: h/o nephrectomy (14) Aortic stenosis: echo from [place] turret punch operator obtained - moderate-severe in grade. he will f/u with his turret punch operator in [place] upon return. (15) Hypokalemia: replaced and normal prior to discharge (16) Abnormal EKG: EKG done during the stay showed inferior wall ST segment depressions. He did not have ischemic symptoms while hospitalized or pre-hospital however. An EKG obtained from his turret punch operator in [place], [place] from earlier in [address] changes in the inferior leads. I recommended he take an 81mg aspirin daily and to speak with his turret punch operator upon return to [place] about obtaining a stress test. He reported that during his previous visit to the turret punch operator they had briefly discussed a stress test at some point. Upon return to [place] the patient will call his turret punch operator about this. Total Time Total Time Spent Total Time Spent (In Minutes): 45 Total Time Includes: Examination of the Patient, Discharge Planning and Medication Reconciliation Discharge Plan Discharge Items Patient Disposition: Home - Self-Care Reason For Visit: DEHYDRATION, FALL, Passing out Discharge Diagnosis: 1. dehydration - resolved 2. urinary tract infection 3. passing out spell (aka - "syncope") 4. fall 5. laceration to face 6. rise in creatinine (kidney function level) - improved; discharge creatinine 1.9 7. low blood pressure - much improved Condition on Discharge: Good Activity: As commented below Activity Comment: caution with rising from seated to standing position; caution with steps Bathing: No limitations Bathing Comment: ok to get your sutures wet during a shower Non-emergency contact: Primary Care Provider, [employer] Call non-emergency contact if: you have any medication questions, your symptoms worsen, your pain is not controlled, your pain is worsening, your pain is unusual for you, your pain is concerning for you, you have a fever, your wound has increased redness, your wound has increased drainage and your wound pain has increased Follow-up/Referrals: Adan Gallegos MD [Physician] - 01/03/20 1:00 pm PCP,NO [Primary Care Provider] - Diet: Heart Healthy Addtl Attending Provider Instructions: You were treated for the above problems listed in the "discharge diagnoses" section. I believe that a combination of dehydration, urinary tract infection, and too much blood pressure medication led to a drop in your blood pressure, dizziness, and then passing out. The passing out led to your fall and injuries. You improved with IV fluids, holding certain blood pressure pills, and antibiotics. Your kidney function level (creatinine) is now 1.9. Your blood pressures and dizziness are improved. I received your echocardiogram and EKG from [place] from November. The echo showed mod-severe aortic stenosis. The EKG from [facility] and from [place] showed some changes that will need to be addressed with your turret punch operator. Recommendations - 1. cephalexin antibiotic - 500mg twice daily for 8 more days starting TOMORROW, 12/28/2019. 2. take an ylej-nhq-mftwoxg probiotic for 10 days to prevent diarrhea. 3. STOP your lisinopril. 4. STOP your amlodipine. 5. LOWER your labetalol to 100mg twice a day. (you had been taking 400mg twice a day) 6. TAKE ujlg-ugw-uomktme aspirin 81mg daily until you see your turret punch operator. I would recommend you discuss having a stress test with him. 7. May use combivent inhaler 1 puff every 6 hours as needed for cough, wheeze, shortness of breath. 8. Have your stitches removed within 7 days from your left cheek. 9. Take dmez-hpy-lacdcjr tylenol as needed for aches or pain. 10. check your blood pressure laying down, sitting and standing daily until you see Dr Gallegos Follow-up - see separate section. See your turret punch operator upon return to [place]. Return to [facility] if - * you have fevers over 100.5 degrees * you have worsening shortness of breath * you have chest pains * you have severe diarrhea * you have ongoing dizziness or passing out * any other concerns Pending Studies at Discharge: No Stand-Alone Forms: My [facility] [employer], Smoking Cessation Medications and DC Order Prescriptions: New aspirin [Aspirin Low Dose] 81 mg tablet,delayed release (DR/EC) 81 mg PO DAILY Qty: 30 RF: 0 cephalexin [Keflex] 500 mg capsule 500 mg PO BID 8 Days Qty: 16 RF: 0 Combivent Respimat 20-100 mcg/actuation mist 1 puffs INH QID PRN (Reason: cough,wheeze,shortness of breath) Qty: 4 RF: 0 Continued gabapentin 300 mg capsule 600 mg PO DAILY RF: 0 promethazine 12.5 mg Tablet 12.5 mg PO DIRECTED PRN (Reason: nausea) RF: 0 ferrous sulfate 325 mg (65 mg iron) Tablet 325 mg PO BID RF: 0 doxazosin [Cardura] 4 mg Tablet 4 mg PO QAM RF: 0 hydroxychloroquine [Plaquenil] 200 mg Tablet 200 mg PO BID RF: 0 zolpidem [Ambien] 10 mg Tablet 10 mg PO HS PRN (Reason: Sleep) RF: 0 duloxetine [Cymbalta] 60 mg Capsule,Delayed Release(Dr/Ec) 60 mg PO QAM RF: 0 cholecalciferol (vitamin D3) [Vitamin D3] 50 mcg (2,000 unit) Tablet 50 mcg PO DAILY RF: 0 albuterol sulfate 90 mcg/actuation HFA aerosol inhaler 2 inha INH Q4H PRN (Reason: shortness of breath or wheezing) Qty: 8 RF: 0 Changed labetalol 200 mg Tablet 100 mg PO BID Qty: 30 RF: 0 Discontinued lisinopril 2.5 mg tablet 2.5 mg PO DAILY Qty: 90 RF: 3 amlodipine [Norvasc] 10 mg Tablet 10 mg PO QAM RF: 0 Discharge Orders: Discharge Order (Routine); Ordered 12/27/19 Ordered By: Jonny Lindquist Admission Data Admit Date/Time: 12/25/19 15:20 Attending Provider: Jonny Lindquist Admit Provider: Jonny Lindquist Primary Care Provider: PCP,NO Other Providers: Jonny Lindquist Other Interventions: Discharge Summary Assessment (RN) Last Done: 12/27/19 14:20 DC Date/Time DO NOT enter until pt leaves facility: 12/27/19 15:05 Coding Level of Care Code D/C Day Management >30 mins Diagnoses Syncope R55 Syncope type: unspecified UTI (urinary tract infection) N30.00 Hematuria presence: without hematuria Urinary tract infection type: acute cystitis Fall down stairs W10.8XXA Encounter type: initial encounter Orthostatic hypotension I95.1 Acute kidney injury N17.9 Acute dehydration E86.0 Contusion of face S00.83XA Encounter type: initial encounter Face lacerations S01.81XA Encounter type: initial encounter HTN (hypertension) I10 Hypertension type: essential hypertension Short gut syndrome K91.2 Lupus L93.0 Lupus erythematosus form: unspecified CKD (chronic kidney disease) stage 3, GFR 30-59 ml/min N18.3 Solitary kidney Q60.0 Aortic stenosis I35.0 Cardiac valve disease etiology: etiology unspecified Hypokalemia E87.6 Abnormal EKG R94.31
== END 2019-12-27 15:05 | disposition home or self-care (01) | DRG 315 ==
LOC: ED 11:34 → INTOOBSV 15:20 → 2N 15:20